=== PATIENT | female | born 2000 | race Caucasian/White ===

== ENCOUNTER → 2021-09-17 07:41 | Observation (INO) ==
[2021-09-17 06:22] LABS: Bacteria,Urine Many per hpf (None-Few); Bilirubin,Urine Negative (Negative); Blood,Urine Negative (Negative); Clarity,Urine Turbid (Clear); Color,Urine Light-Yellow (Yellow); Glucose,Urine (UA) Normal (Normal); Ketones,Urine Negative (Negative); Leukocyte Esterase,Urine Moderate (Negative); Mucus,Urine Few per lpf (None-Few); Nitrite,Urine Negative (Negative); PH,Urine 6.5 pH Units (5.0-8.0); Protein,Urine Trace mg/dL (Neg-Trace); Squamous Epithelial Cell,Urine Moderate per hpf (None-Few); Urobilinogen,Urine Normal (Normal)
[~2021-09-17 07:41] MED LIST: Nitrofurantoin (BID) 100 MG CAPSULE PO STA
== END | disposition home or self-care (01) ==
LOC: 1NENULAB
PROVIDERS: ADMIT Student in an Organized Health Care Education/Training Program; ATTEND Student in an Organized Health Care Education/Training Program

== ENCOUNTER 2021-10-11 21:10 | Inpatient (IN) ==
[~2021-10-11 21:10] MED LIST changes: +*HR* Nalbuphine 10 MG/ML AMPUL IV PRN; +Azithromycin 500 MG in 0.9 % Sodium Chloride 250 ML IVPB PRN; +Famotidine 20 MG/2 ML VIAL IVP PRN; +Metoclopramide 10 MG/2 ML VIAL IVP PRN; +Naloxone 0.4 MG/ML INJ IVP PRN; -Nitrofurantoin (BID) 100 MG CAPSULE PO STA; +Ondansetron 4 MG/2 ML VIAL IVP PRN
[2021-10-11] MEDS ORDERED: Ringers Solution, Lactated 1,000 ML IVC SCH (21:15)
[2021-10-11 21:25] LABS: Basophils % 0.2 %; Eosinophils # 0.2 K/mcL (0.0-0.6); Eosinophils % 1.9 %; Hematocrit 35.4 % (35.3-44.9); Hemoglobin 11.7 g/dL (11.5-15.4); Immature Granulocytes % 0.5 % (0-4); Lymphocytes # 2.5 K/mcL (0.6-4.6); Lymphocytes % 24.5 %; Mean Corpuscular HGB Conc 33.1 g/dL (31.6-35.5); Mean Corpuscular Hemoglobin 28.2 pg (28.0-33.3); Mean Corpuscular Volume 85.3 fL (83.0-100.0); Mean Platelet Volume 11.1 fL (9.4-12.4); Monocytes # 0.8 K/mcL (0.0-1.3); Neutrophils # 6.6 K/mcL (1.6-8.9); Platelet Count 244 K/mcL (140-400); Red Blood Count 4.15 M/mcL (3.82-4.97); Red Cell Distribution Width 14.4 % (11.5-14.5); Segmented Neutrophils % 64.9 %; White Blood Count 10.1 K/mcL (4.3-11.1)
[2021-10-11 21:33] LABS: Bilirubin,Urine Negative (Negative); Blood,Urine Negative (Negative); Clarity,Urine Clear (Clear); Color,Urine Light-Yellow (Yellow); Glucose,Urine (UA) Normal (Normal); Ketones,Urine Negative (Negative); Leukocyte Esterase,Urine Negative (Negative); Nitrite,Urine Negative (Negative); PH,Urine 6.5 pH Units (5.0-8.0); Protein,Urine Trace mg/dL (Neg-Trace); Specific Gravity,Urine 1.018 (1.010-1.025); Urobilinogen,Urine Normal (Normal)
[2021-10-11] MEDS ORDERED: miSOPROStoL 25 MCG TABLET PO STA (21:42)
[2021-10-11 21:44] LABS: Alanine Aminotransferase 4 Units/L (7-52); Aspartate Amino Transferase 8 Units/L (13-39); BUN/Creatinine Ratio 15 (6-26); Blood Urea Nitrogen 8 mg/dL (6-20); Lactate Dehydrogenase 134 Units/L (140-271); Uric Acid 3.8 mg/dL (2.3-7.6); eGFR For African Americans > 60 (> 60); eGFR For Non-African Americans > 60 (> 60)
[2021-10-11 21:45] LABS: Amphetamine Screen,Urine Negative ng/mL (Cutoff=1000); Barbiturate Screen,Urine Negative ng/mL (Cutoff=200); Benzodiazepines Screen,Urine Negative ng/mL (Cutoff=200); Cannabinoid Screen,Urine Negative ng/mL (Cutoff = 50); Cocaine Screen,Urine Negative ng/mL (Cutoff= 300); Creatinine,Urine 84 mg/dL; Opiate Screen,Urine Negative ng/mL (Cutoff=300); Phencyclidine Screen,Urine Negative ng/mL (Cutoff=25); Protein/Creatinine Ratio,Urine 0.14 mg/mg (0.00-0.20)
[2021-10-11 22:15] LABS: Influenza A PCR Negative (Negative); Influenza B PCR Negative (Negative); Resp. Syncytial Virus PCR Negative (Negative)
[2021-10-11 22:16] LABS: SARS-CoV-2 by PCR (In House) Negative (Negative)
[2021-10-12] MEDS ORDERED: Oxytocin 20 units/ LR 1000 mL 20 UNIT/1,000 ML BAG IVC SCH ×2 (00:30→05:15)
[2021-10-12] MEDS ORDERED: Lidocaine 1% 20 ML MDV ONE (04:31)
[2021-10-12] MEDS ORDERED: Benzocaine/Menthol 56 GM AEROSOL SPRAY TP PRN (05:15)
[2021-10-12] MEDS ORDERED: Lanolin 7 G OINT...G. TP PRN (05:15)
[2021-10-12] MEDS ORDERED: Rho Immune Globulin 1,500 UNIT SYRINGE IM PRN (05:15)
[2021-10-12] MEDS ORDERED: Ondansetron ODT 4 MG TAB.RAPDIS SL PRN (05:15)
[2021-10-12 08:57] LABS: HSV 1 DNA Not Detected (Not Detect); HSV 2 DNA DETECTED (Not Detect)
[2021-10-12] MEDS: Prenatal Vit/FA 1 EACH TABLET PO SCH (09:25)
[2021-10-12] MEDS: Ibuprofen 600 MG TABLET PO SCH ×4 (09:26→20:02)
[2021-10-12] MEDS: Acetaminophen 325 MG TABLET PO SCH ×3 (09:26→17:41)
[2021-10-12] MEDS: valACYclovir 500 MG TABLET PO SCH (20:01)
[2021-10-13] MEDS: Ibuprofen 600 MG TABLET PO SCH (10:02)
[2021-10-13] MEDS: Acetaminophen 325 MG TABLET PO SCH (10:03)
[2021-10-13] MEDS: Prenatal Vit/FA 1 EACH TABLET PO SCH (10:03)
[2021-10-13] MEDS: valACYclovir 500 MG TABLET PO SCH (10:03)
[2021-10-13 21:33] VITALS: O2SAT 98
[2021-10-14] MEDS: Prenatal Vit/FA 1 EACH TABLET PO SCH (08:44)
[2021-10-14] MEDS: Ibuprofen 600 MG TABLET PO SCH (08:45)
[2021-10-14] MEDS: Acetaminophen 325 MG TABLET PO SCH (08:45)
[2021-10-14] MEDS: valACYclovir 500 MG TABLET PO SCH (08:45)
[2021-10-14 12:54] VITALS: BP 129/86; PULSE 93; TEMP 98.3
[2021-10-15 10:31] LABS: HSV 1 Glycoprotein G IgG <0.01 IV (<=0.89); HSV 2 Glycoprotein G IgG 4.06 IV (<=0.89)
== END 2021-10-14 18:06 | disposition home or self-care (01) | DRG 560 ==
LOC: 1NENULAB → 1NENUOBS 10-12 08:01
PROVIDERS: ADMIT Registered Nurse; ATTEND Registered Nurse